=== PATIENT | male | born 1940 | race Caucasian/White ===

== ENCOUNTER 2016-09-20 15:18 | Observation (INO) | payer MEDICARE ==
[~2016-09-20] VITALS: Ht 172.7 cm; Wt 94.8 kg
[~2016-09-20 15:18] MED LIST: AQUAPHOR OINTM396 GM TP; AQUAPHOR1 OI1 TP; ASPI325T6 PO; ASPIRIN 81M81 MG/TA2 PO; CALCIUM 600/VIT1 CAP PO; CALCIUM600 M1 PO; CLOBETASOL0.05% TP; COZAAR 50MG50 MG/TAB PO; FENTANYL 25 MCG TD; FISH OIL 1000MG1 CAP PO; FISH OIL500 MG PO; FLUOCINONIDE 0.60 GM TP; GLUCOPHAGE500 MG/TAB PO; HALOBETASOL PRO0.05% TP; HYGROTON 2525 MG/TAB PO; HYGROTON25 MG PO; IMODIUM 2MG CAPS2 MG PO; JANUMET 1000 MG1 TA1 PO; KENALOG0.1% TP; LIPITOR20 MG PO; LOPRESSOR 225 MG/TAB PO; MAG-OX 400400 MG/TAB PO; MAGOX 400241.3 MG PO; MULTIPLE VITAMI1 CAP PO; NEXIUM 40MG40 MG PO; NIACIN 100100 MG/TAB PO; NIACIN100 MG PO; NITROSTAT0.4 MG/TAB SL; NORCO 325 MG-51 TAB PO; PEPCID 20MG TAB20 MG PO; ROXANOL 20MG20 MG/ML PO; SYNTHROID0.05 MG/TA PO; TEMOVATE0.052 TOP; TOPROL XL 50MG50 MG PO; ULTRAVATE CREAM15 GM TP; VITAMIN D 400400 IU PO; [UNRECOGNIZED DRUG - OTHER] TP
[2016-09-20 16:22] VITALS: BP 107/587; PULSE 77
[2016-09-20 16:34] LABS: MEAN CELL VOLUME 102 fl (80.0-100.0); MEAN CORPUSCULAR HGB CONC 33 g/dl (33.0-37.0); MEAN PLATELET VOLUME 10.3 fl (7.4-10.4); RED BLOOD COUNT 2.19 M/mm3 (4.20-5.60); REDCELL DISTRIBUTION WIDTH-CV 18.4 % (11.5-14.5)
[2016-09-20 16:41] LABS: ADJUSTED CALCIUM 9.6 mg/dL (8.4-10.2); ALANINE AMINOTRANSFERASE 38 U/L (21-72); ALBUMIN 3.7 gm/dL (3.5-5.0); ALKALINE PHOSPHATASE 91 U/L (50-136); ANION GAP 13 mmol/L (7-16); BILIRUBIN,TOTAL 0.7 mg/dL (0.0-1.0); BLOOD UREA NITROGEN 25 mg/dL (9-20); CALCIUM 9.4 mg/dL (8.4-10.2); CARBON DIOXIDE 29 mmol/L (22-30); CHLORIDE 96 mmol/L (98-107); CREATININE, serum 0.97 mg/dL (0.66-1.25); GLUCOSE 148 mg/dL (74-106); POTASSIUM 3.8 mmol/L (3.4-5.0); SODIUM 138 mmol/L (137-145); TOTAL PROTEIN 6.8 gm/dL (6.4-8.2)
[2016-09-20 16:42] LABS: HEMATOCRIT 22.3 % (42.0-52.0); HEMOGLOBIN 7.3 g/dl (13.5-18.0); MEAN CORPUSCULAR HEMOGLOBIN 33 pg (27.0-31.0); PLATELET COUNT 57 K/mm3 (130-400); WHITE BLOOD COUNT 1.8 K/mm3 (4.8-10.8)
[2016-09-20 16:52] LABS: TROPONIN-I < 0.012 ng/mL (0.000-0.034)
[2016-09-20 17:04] LABS: BAND 36 % (0-10); BASOPHIL 1 % (0-2); METAMYELOCYTE 2 % (0-0); MYELOCYTE 4 % (0-0); NEUTROPHILS 18 % (42.0-75.2); TOTAL CELLS COUNTED 100
[2016-09-20 17:05] LABS: ANISOCYTOSIS 2+; PLATELET ESTIMATE DECREASED (NORMAL)
[2016-09-20 17:06] LABS: HYPOCHROMIA 2+
[2016-09-20 17:07] LABS: ADD PATHOLOGY DIFF REVIEW YES
[2016-09-20] MEDS ORDERED: FENTANYL 100 MCG SL (17:46)
[2016-09-20] MEDS ORDERED: FENTANYL 100MCG TD (18:27)
[2016-09-20 18:59] VITALS: BP 115/56; PULSE 74; TEMP 98.3
[2016-09-20 22:32] LABS: PH 6 (5-8); SQUAMOUS EPITHELIAL 0-2 /hpf; URINE APPEARANCE Clear; URINE BACTERIA None Seen /hpf; URINE BILIRUBIN Negative (NEGATIVE); URINE BLOOD Negative (NEGATIVE); URINE COLOR Yellow; URINE GLUCOSE Negative (NEGATIVE); URINE KETONE Negative (NEGATIVE); URINE RBC 0-2 /hpf; URINE UROBILINOGEN Negative (NEGATIVE); URINE WBC 0-2 /hpf
[2016-09-20 23:09] VITALS: BP 93/50; PULSE 77; TEMP 98.2
[2016-09-20 23:33] VITALS: BP 97/50; PULSE 74; TEMP 98.2
[2016-09-21] VITALS (9 sets, daily range): BP systolic 88–118; BP diastolic 49–68; PULSE 62–86; TEMP 98.1–98.4
[2016-09-21 17:41] LABS: HEMATOCRIT 23.8 % (42.0-52.0); MEAN CELL VOLUME 96 fl (80.0-100.0); MEAN CORPUSCULAR HEMOGLOBIN 32 pg (27.0-31.0); MEAN CORPUSCULAR HGB CONC 34 g/dl (33.0-37.0); RED BLOOD COUNT 2.47 M/mm3 (4.20-5.60); REDCELL DISTRIBUTION WIDTH-CV 18.7 % (11.5-14.5)
[2016-09-21 17:43] LABS: ADD PATHOLOGY DIFF REVIEW NO; PLATELET COUNT 41 K/mm3 (130-400)
[2016-09-21 17:52] LABS: ANISOCYTOSIS 2+; BAND 14 % (0-10); EOSINOPHIL 2 % (0-4); NEUTROPHILS 12 % (42.0-75.2); PLATELET ESTIMATE DECREASED (NORMAL); POLYCHROMASIA 1+
[2016-09-21 17:53] LABS: TOTAL CELLS COUNTED 50
[2016-09-21 17:58] LABS: CALCIUM 8.9 mg/dL (8.4-10.2); CREATININE, serum 0.86 mg/dL (0.66-1.25); POTASSIUM 3.6 mmol/L (3.4-5.0)
[2016-09-21] MEDS ORDERED: AMOXICILLIN 8751 TAB PO (18:12)
[2016-09-21] MEDS ORDERED: COLACE 100100 MG/CAP PO (18:13)
[2016-09-23 08:37] LABS: PATHOLOGY DIFF REVIEW OK
== END 2016-09-21 18:50 | disposition home or self-care (01) ==
LOC: COL.ER 15:18 → MEDICAL 17:27
PROVIDERS: Emergency Medicine; Nurse Practitioner Family
DX: D61.810 Antineoplastic chemotherapy induced pancytopenia (principal); D69.6 Thrombocytopenia, unspecified; J32.9 Chronic sinusitis, unspecified; D72.819 Decreased white blood cell count, unspecified; E11.9 Type 2 diabetes mellitus without complications; I10 Essential (primary) hypertension; C34.90 Malignant neoplasm of unspecified part of unspecified bronchus or lung; C79.51 Secondary malignant neoplasm of bone; D64.81 Anemia due to antineoplastic chemotherapy; Z85.46 Personal history of malignant neoplasm of prostate; G35 Multiple sclerosis; R53.1 Weakness; E66.9 Obesity, unspecified; E78.5 Hyperlipidemia, unspecified; E03.9 Hypothyroidism, unspecified
CPT/HCPCS: G0378; J7030; P9040

== ENCOUNTER 2016-10-14 09:47 | Outpatient (RCR) | payer MEDICARE ==
[2016-10-14] VITALS (9 sets, daily range): BP systolic 86–107; BP diastolic 49–57; PULSE 67–77; TEMP 97.5–98.8
[~2016-10-14] VITALS: Ht 172.7 cm; Wt 100.1 kg
[~2016-10-14 09:47] MED LIST changes: +AMOXICILLIN 8751 TAB PO; +COLACE 100100 MG/CAP PO; +FENTANYL 100 MCG SL; +FENTANYL 100MCG TD
[2016-10-14 10:59] LABS: HEMATOCRIT 22.8 % (42.0-52.0); HEMOGLOBIN 7.5 g/dl (13.5-18.0)
[2016-10-14] MEDS ORDERED: ZOFRAN8 MG PO (11:14)
[2016-10-14] MEDS ORDERED: MS CONTIN100 MG PO (11:14)
== END 2016-10-14 16:14 | disposition home or self-care (01) ==
LOC: EUO 09:47
PROVIDERS: Internal Medicine
DX: C7A.8 Other malignant neuroendocrine tumors (principal)
CPT/HCPCS: J1644; J7050; P9016

== ENCOUNTER 2017-01-17 18:09 | Emergency (ER) | payer MEDICARE ==
[~2017-01-17] VITALS: Ht 172.7 cm; Wt 99.1 kg
[~2017-01-17 18:09] MED LIST changes: +MS CONTIN100 MG PO; +ZOFRAN8 MG PO
[2017-01-17 18:12] VITALS: TEMP 97.8
[2017-01-17 19:43] LABS: BASO % 0.6 % (0.0-2.0); EOS # 0.1 (0.0-0.7); EOS % 1.9 % (0-4.0); GRAN # 3.7 (1.4-6.5); GRAN % 70.1 % (42.2-75.2); LYMPH # 0.7 (1.2-3.4); LYMPH % 13.2 % (20.0-51.0); MEAN CELL VOLUME 102 fl (80.0-100.0); MEAN CORPUSCULAR HGB CONC 33 g/dl (33.0-37.0); MONO # 0.7 (0.1-0.6); PLATELET COUNT 170 K/mm3 (130-400); RED BLOOD COUNT 2.97 M/mm3 (4.20-5.60); REDCELL DISTRIBUTION WIDTH-CV 13.2 % (11.5-14.5); WHITE BLOOD COUNT 5.2 K/mm3 (4.8-10.8)
[2017-01-17 19:44] LABS: HEMATOCRIT 30.2 % (42.0-52.0); HEMOGLOBIN 9.9 g/dl (13.5-18.0); MEAN CORPUSCULAR HEMOGLOBIN 33 pg (27.0-31.0)
[2017-01-17 19:55] LABS: ADJUSTED CALCIUM 9.2 mg/dL (8.4-10.2); ALANINE AMINOTRANSFERASE 23 U/L (21-72); ALBUMIN 3.7 gm/dL (3.5-5.0); ALKALINE PHOSPHATASE 64 U/L (50-136); ANION GAP 9 mmol/L (7-16); BILIRUBIN,TOTAL 0.7 mg/dL (0.0-1.0); BLOOD UREA NITROGEN 20 mg/dL (9-20); CARBON DIOXIDE 29 mmol/L (22-30); CHLORIDE 98 mmol/L (98-107); GLUCOSE 85 mg/dL (74-106); LIPASE 100 U/L (23-300); POTASSIUM 3.8 mmol/L (3.4-5.0); SODIUM 137 mmol/L (137-145)
[2017-01-17 19:56] LABS: C-REACTIVE PROTEIN < 0.5 mg/dL (0.0-0.9)
[2017-01-17 21:43] VITALS: BP 100/57; PULSE 68
== END 2017-01-17 21:43 | disposition home or self-care (01) ==
LOC: COL.ER 18:09
PROVIDERS: Emergency Medicine
DX: R10.11 Right upper quadrant pain (principal); E11.9 Type 2 diabetes mellitus without complications; G35 Multiple sclerosis; Z85.46 Personal history of malignant neoplasm of prostate; I10 Essential (primary) hypertension; Z92.3 Personal history of irradiation; Z79.84 Long term (current) use of oral hypoglycemic drugs
CPT/HCPCS: J7030; Q9967

== ENCOUNTER 2017-03-10 13:30 | Outpatient (RCR) | payer MEDICARE ==
[2017-03-10] VITALS (8 sets, daily range): BP systolic 82–109; BP diastolic 45–73; PULSE 55–84; TEMP 98.1–98.6
[~2017-03-10] VITALS: Ht 172.7 cm; Wt 96.4 kg
[2017-03-15] MEDS ORDERED: K-DUR 10 MEQ T10 MEQ PO (01:21)
[2017-03-27] MEDS ORDERED: GLUCOSAMIN 500 PO (14:19)
[2017-03-27] MEDS ORDERED: LEVAQUIN 5500 MG/TA1 PO (14:20)
[2017-03-27] MEDS ORDERED: MS CONTIN100 MG PO (14:21)
[2017-03-27] MEDS ORDERED: KLOR-CON 1010 MEQ PO (14:22)
[2017-03-27] MEDS ORDERED: COENZYME Q-10100 M1 PO (14:23)
[2017-03-27 17:18] VITALS: BP 111/52; PULSE 79; TEMP 98
[2017-03-27 17:33] VITALS: BP 93/44; PULSE 77; TEMP 98.3
[2017-03-27 17:47] VITALS: BP 104/50; PULSE 80; TEMP 98
[2017-03-28 09:25] VITALS: BP 101/55; PULSE 83; TEMP 97.8
[2017-03-28 09:40] VITALS: BP 92/53; PULSE 81; TEMP 98.6
[2017-03-28 10:10] VITALS: BP 89/53; PULSE 77; TEMP 97.4
[2017-03-28 11:00] VITALS: BP 93/55; PULSE 75; TEMP 98.6
== END 2017-03-28 11:29 | disposition home or self-care (01) ==
LOC: EUO 13:30
DX: C34.90 Malignant neoplasm of unspecified part of unspecified bronchus or lung (principal); Z79.899 Other long term (current) drug therapy
CPT/HCPCS: J1644; J7050; P9037; P9040

== ENCOUNTER 2017-03-14 23:53 | Emergency (ER) | payer MEDICARE ==
[~2017-03-14] VITALS: Ht 172.7 cm; Wt 96.4 kg
[2017-03-15 00:18] LABS: MEAN CELL VOLUME 96 fl (80.0-100.0); MEAN CORPUSCULAR HGB CONC 34 g/dl (33.0-37.0); MEAN PLATELET VOLUME 9.3 fl (7.4-10.4); PLATELET COUNT 95 K/mm3 (130-400); RED BLOOD COUNT 2.88 M/mm3 (4.20-5.60); WHITE BLOOD COUNT 4.8 K/mm3 (4.8-10.8)
[2017-03-15 00:20] LABS: HEMATOCRIT 27.5 % (42.0-52.0); HEMOGLOBIN 9.3 g/dl (13.5-18.0); MEAN CORPUSCULAR HEMOGLOBIN 32 pg (27.0-31.0)
[2017-03-15 00:21] LABS: ADD PATHOLOGY DIFF REVIEW NO
[2017-03-15 00:29] LABS: ADJUSTED CALCIUM 9.2 mg/dL (8.4-10.2); ALBUMIN 3.7 gm/dL (3.5-5.0); BILIRUBIN,TOTAL 0.6 mg/dL (0.0-1.0); CREATININE, serum 1.5 mg/dL (0.66-1.25); TOTAL PROTEIN 6.9 gm/dL (6.4-8.2)
[2017-03-15 00:30] LABS: BAND 25 % (0-10); EOSINOPHIL 2 % (0-4); LYMPHOCYTE 13 % (20.0-51.0); METAMYELOCYTE 3 % (0-0); NEUTROPHILS 40 % (42.0-75.2); PLATELET ESTIMATE NORMAL (NORMAL); TOTAL CELLS COUNTED 100
[2017-03-15 00:31] LABS: INR 1.1 (0.8-3.0); PROTHROMBIN TIME 12.1 SECONDS (9.7-12.8)
[2017-03-15] MEDS ORDERED: K-DUR 10 MEQ T10 MEQ PO (01:21)
[2017-03-15 01:23] VITALS: BP 119/62; PULSE 77; TEMP 99.3
== END 2017-03-15 02:10 | disposition home or self-care (01) ==
LOC: COL.ER 23:53
PROVIDERS: Emergency Medicine
DX: R09.1 Pleurisy (principal); C79.51 Secondary malignant neoplasm of bone; I87.2 Venous insufficiency (chronic) (peripheral); R60.0 Localized edema; C78.02 Secondary malignant neoplasm of left lung; C78.01 Secondary malignant neoplasm of right lung
CPT/HCPCS: J7030; Q9967

== ENCOUNTER 2017-03-27 11:13 | Emergency (ER) | payer MEDICARE ==
[~2017-03-27] VITALS: Ht 172.7 cm; Wt 96.4 kg
[~2017-03-27 11:13] MED LIST changes: +K-DUR 10 MEQ T10 MEQ PO
[2017-03-27 11:16] VITALS: TEMP 97.9
[2017-03-27 12:26] LABS: PARTIAL THROMBOPLASTIN TIME 24.1 SECONDS (26.0-37.0); PROTHROMBIN TIME 11.4 SECONDS (9.7-12.8)
[2017-03-27 12:43] LABS: ALBUMIN 3.4 gm/dL (3.5-5.0); BILIRUBIN,TOTAL 1.2 mg/dL (0.0-1.0); CALCIUM 8.5 mg/dL (8.4-10.2); CREATININE, serum 1.38 mg/dL (0.66-1.25); POTASSIUM 3.5 mmol/L (3.4-5.0); TOTAL PROTEIN 6.3 gm/dL (6.4-8.2)
[2017-03-27 12:53] LABS: PH 5 (5-8); SQUAMOUS EPITHELIAL 0-2 /hpf; URINE APPEARANCE Hazy; URINE BACTERIA Rare /hpf; URINE BILIRUBIN Negative (NEGATIVE); URINE BLOOD Negative (NEGATIVE); URINE COLOR Yellow; URINE GLUCOSE Negative (NEGATIVE); URINE KETONE Negative (NEGATIVE); URINE RBC 0-2 /hpf; URINE UROBILINOGEN Negative (NEGATIVE)
[2017-03-27 13:23] LABS: MEAN CELL VOLUME 96 fl (80.0-100.0); MEAN CORPUSCULAR HGB CONC 34 g/dl (33.0-37.0); MEAN PLATELET VOLUME 9.9 fl (7.4-10.4); RED BLOOD COUNT 2.36 M/mm3 (4.20-5.60); REDCELL DISTRIBUTION WIDTH-CV 13.2 % (11.5-14.5)
[2017-03-27 13:28] LABS: HEMATOCRIT 22.6 % (42.0-52.0); HEMOGLOBIN 7.6 g/dl (13.5-18.0); MEAN CORPUSCULAR HEMOGLOBIN 32 pg (27.0-31.0); PLATELET COUNT 34 K/mm3 (130-400); WHITE BLOOD COUNT 1.1 K/mm3 (4.8-10.8)
[2017-03-27] MEDS ORDERED: GLUCOSAMIN 500 PO (14:19)
[2017-03-27] MEDS ORDERED: LEVAQUIN 5500 MG/TA1 PO (14:20)
[2017-03-27] MEDS ORDERED: MS CONTIN100 MG PO (14:21)
[2017-03-27] MEDS ORDERED: KLOR-CON 1010 MEQ PO (14:22)
[2017-03-27] MEDS ORDERED: COENZYME Q-10100 M1 PO (14:23)
[2017-03-27 14:37] LABS: BAND 14 % (0-10); EOSINOPHIL 2 % (0-4); METAMYELOCYTE 4 % (0-0); NEUTROPHILS 44 % (42.0-75.2); PLATELET ESTIMATE DECREASED (NORMAL); TOTAL CELLS COUNTED 100
[2017-03-27 14:39] LABS: HYPOCHROMIA 2+
[2017-03-27 14:42] LABS: ADD PATHOLOGY DIFF REVIEW YES
[2017-03-27 14:58] VITALS: BP 113/71; PULSE 80
[2017-03-30 09:08] LABS: PATHOLOGY DIFF REVIEW OK
== END 2017-03-27 14:57 | disposition home or self-care (01) ==
LOC: COL.ER 11:13
PROVIDERS: Emergency Medicine
DX: D64.9 Anemia, unspecified (principal); R07.9 Chest pain, unspecified; R42 Dizziness and giddiness; R06.02 Shortness of breath; R53.1 Weakness; Z85.118 Personal history of other malignant neoplasm of bronchus and lung; E11.9 Type 2 diabetes mellitus without complications; I10 Essential (primary) hypertension; Z85.46 Personal history of malignant neoplasm of prostate; C79.51 Secondary malignant neoplasm of bone
CPT/HCPCS: J7030

== ENCOUNTER 2017-03-31 13:03 | Outpatient (RCR) | payer MEDICARE ==
[~2017-03-31] VITALS: Ht 172.7 cm; Wt 96.3 kg
[~2017-03-31 13:03] MED LIST changes: +COENZYME Q-10100 M1 PO; +GLUCOSAMIN 500 PO; +KLOR-CON 1010 MEQ PO; +LEVAQUIN 5500 MG/TA1 PO
[2017-03-31 13:52] VITALS: BP 94/58; PULSE 80; TEMP 98.7
[2017-03-31 14:11] VITALS: BP 99/59; PULSE 82; TEMP 98.1
[2017-03-31 14:26] VITALS: BP 102/46; PULSE 68; TEMP 98.4
[2017-03-31 14:45] VITALS: BP 97/50; PULSE 70; TEMP 98.5
[2017-04-12] MEDS ORDERED: FENTANYL 100MCG TD (13:45)
[2017-04-14] MEDS ORDERED: COLACE 100100 MG/CAP PO (20:23)
[2017-04-15] MEDS ORDERED: AMOXICILLIN 8751 TAB PO (12:43)
[2017-04-23] MEDS ORDERED: HYCAMTIN IV (18:58)
[2017-05-09] MEDS ORDERED: MIRALAX 255 GM255 GM PO (16:17)
[2017-05-12] MEDS ORDERED: PROTONIX 40MG T40 MG PO (17:46)
== END 2017-06-29 ==
LOC: EUO
DX: C7A.00 Malignant carcinoid tumor of unspecified site (principal)
CPT/HCPCS: J1644; J7050; P9035

== ENCOUNTER → 2017-04-10 | Outpatient (CLI) | payer MEDICARE ==
[~2017-04-10] MED LIST changes: +HYCAMTIN IV; +MIRALAX 255 GM255 GM PO; +PROTONIX 40MG T40 MG PO
== END ==
LOC: COL.RAD 12:25
DX: C34.90 Malignant neoplasm of unspecified part of unspecified bronchus or lung (principal); C7A.00 Malignant carcinoid tumor of unspecified site; J34.89 Other specified disorders of nose and nasal sinuses; G31.9 Degenerative disease of nervous system, unspecified
CPT/HCPCS: A9585; J1644

== ENCOUNTER 2017-04-12 12:15 | Emergency (ER) | payer MEDICARE ==
[~2017-04-12] VITALS: Ht 172.7 cm; Wt 96.4 kg
[~2017-04-12 12:15] MED LIST changes: -HYCAMTIN IV; -MIRALAX 255 GM255 GM PO; -PROTONIX 40MG T40 MG PO
[2017-04-12 12:20] VITALS: TEMP 98
[2017-04-12 13:14] LABS: MEAN CELL VOLUME 96 fl (80.0-100.0); MEAN CORPUSCULAR HGB CONC 33 g/dl (33.0-37.0); MEAN PLATELET VOLUME 9.7 fl (7.4-10.4); PLATELET COUNT 360 K/mm3 (130-400); RED BLOOD COUNT 2.66 M/mm3 (4.20-5.60); REDCELL DISTRIBUTION WIDTH-CV 14.6 % (11.5-14.5)
[2017-04-12 13:15] LABS: HEMATOCRIT 25.5 % (42.0-52.0); HEMOGLOBIN 8.4 g/dl (13.5-18.0); MEAN CORPUSCULAR HEMOGLOBIN 32 pg (27.0-31.0)
[2017-04-12 13:16] LABS: ADD PATHOLOGY DIFF REVIEW NO
[2017-04-12 13:22] LABS: ADJUSTED CALCIUM 9.3 mg/dL (8.4-10.2); ALBUMIN 3.5 gm/dL (3.5-5.0); BILIRUBIN,TOTAL 1.4 mg/dL (0.0-1.0); CALCIUM 8.9 mg/dL (8.4-10.2); CREATININE, serum 1.4 mg/dL (0.66-1.25); POTASSIUM 4.4 mmol/L (3.4-5.0); TOTAL PROTEIN 6.2 gm/dL (6.4-8.2)
[2017-04-12 13:42] LABS: PH 5 (5-8); SQUAMOUS EPITHELIAL 0-2 /hpf; URINE APPEARANCE Clear; URINE BACTERIA None Seen /hpf; URINE BILIRUBIN Negative (NEGATIVE); URINE BLOOD 1+ (NEGATIVE); URINE COLOR Yellow; URINE GLUCOSE Negative (NEGATIVE); URINE KETONE Negative (NEGATIVE); URINE RBC 0-2 /hpf; URINE UROBILINOGEN Negative (NEGATIVE); URINE WBC 0-2 /hpf
[2017-04-12] MEDS ORDERED: FENTANYL 100MCG TD (13:45)
[2017-04-12 14:40] LABS: BAND 7 % (0-10); NEUTROPHILS 86 % (42.0-75.2); OVALOCYTES 2+; PLATELET ESTIMATE INCREASED (NORMAL); TOTAL CELLS COUNTED 100
[2017-04-12 15:20] VITALS: BP 117/73; PULSE 63
== END 2017-04-12 15:44 | disposition home or self-care (01) ==
LOC: COL.ER 12:15
PROVIDERS: Emergency Medicine
DX: D64.9 Anemia, unspecified (principal); R53.1 Weakness; I10 Essential (primary) hypertension; E11.9 Type 2 diabetes mellitus without complications; Z85.46 Personal history of malignant neoplasm of prostate; G35 Multiple sclerosis; C78.02 Secondary malignant neoplasm of left lung; C78.01 Secondary malignant neoplasm of right lung
CPT/HCPCS: J7040

== ENCOUNTER 2017-04-14 16:18 | Observation (INO) | payer MEDICARE ==
[~2017-04-14] VITALS: Ht 172.7 cm; Wt 92.3 kg
[2017-04-14 17:13] LABS: MEAN CELL VOLUME 93 fl (80.0-100.0); MEAN CORPUSCULAR HGB CONC 33 g/dl (33.0-37.0); MEAN PLATELET VOLUME 9.8 fl (7.4-10.4); REDCELL DISTRIBUTION WIDTH-CV 14.5 % (11.5-14.5)
[2017-04-14 17:21] LABS: ADJUSTED CALCIUM 9.6 mg/dL (8.4-10.2); ALANINE AMINOTRANSFERASE 20 U/L (21-72); ALBUMIN 3.7 gm/dL (3.5-5.0); ALKALINE PHOSPHATASE 55 U/L (50-136); ANION GAP 13 mmol/L (7-16); BILIRUBIN,TOTAL 1.6 mg/dL (0.0-1.0); BLOOD UREA NITROGEN 36 mg/dL (9-20); CALCIUM 9.4 mg/dL (8.4-10.2); CARBON DIOXIDE 23 mmol/L (22-30); CHLORIDE 100 mmol/L (98-107); CREATININE, serum 1.31 mg/dL (0.66-1.25); GLUCOSE 103 mg/dL (74-106); HEMATOCRIT 25.2 % (42.0-52.0); HEMOGLOBIN 8.4 g/dl (13.5-18.0); MEAN CORPUSCULAR HEMOGLOBIN 31 pg (27.0-31.0); POTASSIUM 3.6 mmol/L (3.4-5.0); SODIUM 136 mmol/L (137-145); TOTAL PROTEIN 6.5 gm/dL (6.4-8.2); WHITE BLOOD COUNT 0.9 K/mm3 (4.8-10.8)
[2017-04-14 17:23] LABS: C-REACTIVE PROTEIN < 0.5 mg/dL (0.0-0.9)
[2017-04-14 17:39] LABS: PH 5 (5-8); SQUAMOUS EPITHELIAL 0-2 /hpf; URINE APPEARANCE Clear; URINE BACTERIA None Seen /hpf; URINE BILIRUBIN Negative (NEGATIVE); URINE BLOOD 1+ (NEGATIVE); URINE COLOR Yellow; URINE GLUCOSE Negative (NEGATIVE); URINE KETONE Negative (NEGATIVE); URINE RBC 0-2 /hpf; URINE UROBILINOGEN Negative (NEGATIVE)
[2017-04-14 17:47] LABS: ADD PATHOLOGY DIFF REVIEW NO; PLATELET COUNT 213 K/mm3 (130-400)
[2017-04-14 17:52] LABS: BAND 18 % (0-10); NEUTROPHILS 44 % (42.0-75.2); PLATELET ESTIMATE NORMAL (NORMAL); TOXIC GRANULATION PRESENT
[2017-04-14 17:53] LABS: DOHLE BODIES PRESENT
[2017-04-14 17:54] LABS: ANISOCYTOSIS 1+; OVALOCYTES 1+; POIKILOCYTOSIS 2+
[2017-04-14 17:56] LABS: HYPOCHROMIA 1+; TOTAL CELLS COUNTED 100
[2017-04-14] MEDS ORDERED: COLACE 100100 MG/CAP PO (20:23)
[2017-04-14 21:36] VITALS: BP 105/57; PULSE 71; TEMP 98
[2017-04-14 23:59] VITALS: BP 102/58; PULSE 87; TEMP 97.8
[2017-04-15 04:17] VITALS: BP 89/47; PULSE 75; TEMP 97.2
[2017-04-15 05:30] VITALS: BP 100/57
[2017-04-15 06:37] LABS: MEAN CELL VOLUME 95 fl (80.0-100.0); MEAN CORPUSCULAR HGB CONC 33 g/dl (33.0-37.0); MEAN PLATELET VOLUME 10.3 fl (7.4-10.4); PLATELET COUNT 156 K/mm3 (130-400); RED BLOOD COUNT 2.45 M/mm3 (4.20-5.60); REDCELL DISTRIBUTION WIDTH-CV 14.6 % (11.5-14.5)
[2017-04-15 06:42] LABS: HEMATOCRIT 23.2 % (42.0-52.0); HEMOGLOBIN 7.6 g/dl (13.5-18.0); MEAN CORPUSCULAR HEMOGLOBIN 31 pg (27.0-31.0); WHITE BLOOD COUNT 1.2 K/mm3 (4.8-10.8)
[2017-04-15 06:43] LABS: ADD PATHOLOGY DIFF REVIEW NO
[2017-04-15 06:50] LABS: CALCIUM 8.7 mg/dL (8.4-10.2); CREATININE, serum 1.18 mg/dL (0.66-1.25); POTASSIUM 3.3 mmol/L (3.4-5.0)
[2017-04-15 07:42] LABS: BAND 42 % (0-10); NEUTROPHILS 10 % (42.0-75.2); TOTAL CELLS COUNTED 100
[2017-04-15 07:46] LABS: PLATELET ESTIMATE NORMAL (NORMAL)
[2017-04-15 07:47] LABS: DOHLE BODIES PRESENT; TOXIC GRANULATION PRESENT
[2017-04-15 07:48] LABS: TEAR DROP CELLS 1+
[2017-04-15 08:30] VITALS: BP 95/50; PULSE 70; TEMP 99
[2017-04-15 11:15] VITALS: BP 103/59; PULSE 76; TEMP 97.9
[2017-04-15] MEDS ORDERED: AMOXICILLIN 8751 TAB PO (12:43)
== END 2017-04-15 15:40 | disposition home or self-care (01) ==
LOC: COL.ER 16:18 → MEDICAL 18:53
PROVIDERS: Emergency Medicine; Nurse Practitioner Family
DX: I95.9 Hypotension, unspecified (principal); R74.0 Nonspecific elevation of levels of transaminase and lactic acid dehydrogenase [LDH]; R63.4 Abnormal weight loss; E43 Unspecified severe protein-calorie malnutrition; J32.9 Chronic sinusitis, unspecified; D72.819 Decreased white blood cell count, unspecified; D72.825 Bandemia; D64.9 Anemia, unspecified; N18.9 Chronic kidney disease, unspecified; E11.22 Type 2 diabetes mellitus with diabetic chronic kidney disease; E03.9 Hypothyroidism, unspecified; E78.5 Hyperlipidemia, unspecified; G35 Multiple sclerosis; E66.9 Obesity, unspecified; Z85.46 Personal history of malignant neoplasm of prostate; C34.90 Malignant neoplasm of unspecified part of unspecified bronchus or lung; C79.51 Secondary malignant neoplasm of bone; Z92.3 Personal history of irradiation; Z79.899 Other long term (current) drug therapy; E80.7 Disorder of bilirubin metabolism, unspecified; R53.1 Weakness
CPT/HCPCS: 99223-AI; G0378; J0692; J2270; J7030

== ENCOUNTER 2017-04-23 18:35 | Emergency (ER) | payer MEDICARE ==
[~2017-04-23] VITALS: Ht 172.7 cm; Wt 96.4 kg
[2017-04-23] MEDS ORDERED: HYCAMTIN IV (18:58)
[2017-04-23 19:13] LABS: MEAN CELL VOLUME 93 fl (80.0-100.0); MEAN CORPUSCULAR HGB CONC 34 g/dl (33.0-37.0); MEAN PLATELET VOLUME 10.7 fl (7.4-10.4); PLATELET COUNT 114 K/mm3 (130-400); RED BLOOD COUNT 2.48 M/mm3 (4.20-5.60); REDCELL DISTRIBUTION WIDTH-CV 15.2 % (11.5-14.5); WHITE BLOOD COUNT 13.3 K/mm3 (4.8-10.8)
[2017-04-23 19:18] LABS: HEMATOCRIT 23.1 % (42.0-52.0); HEMOGLOBIN 7.9 g/dl (13.5-18.0); MEAN CORPUSCULAR HEMOGLOBIN 32 pg (27.0-31.0)
[2017-04-23 19:19] LABS: ADD PATHOLOGY DIFF REVIEW NO
[2017-04-23 19:35] LABS: ADJUSTED CALCIUM 9.1 mg/dL (8.4-10.2); ALBUMIN 3.7 gm/dL (3.5-5.0); BILIRUBIN,TOTAL 0.8 mg/dL (0.0-1.0); CALCIUM 8.9 mg/dL (8.4-10.2); CREATININE, serum 1.3 mg/dL (0.66-1.25); TOTAL PROTEIN 6.4 gm/dL (6.4-8.2)
[2017-04-23 19:37] LABS: POTASSIUM 2.7 mmol/L (3.4-5.0)
[2017-04-23 20:01] LABS: ANISOCYTOSIS 1+; BAND 21 % (0-10); METAMYELOCYTE 2 % (0-0); NEUTROPHILS 55 % (42.0-75.2); PLATELET ESTIMATE NORMAL (NORMAL); POLYCHROMASIA 1+; TOTAL CELLS COUNTED 100
[2017-04-23 20:02] LABS: POIKILOCYTOSIS 1+
[2017-04-23 20:40] LABS: PH 7 (5-8); SQUAMOUS EPITHELIAL 0-2 /hpf; URINE APPEARANCE Hazy; URINE BACTERIA None Seen /hpf; URINE BILIRUBIN Negative (NEGATIVE); URINE BLOOD Negative (NEGATIVE); URINE COLOR Yellow; URINE GLUCOSE 1+ (NEGATIVE); URINE KETONE Trace (NEGATIVE); URINE RBC 0-2 /hpf; URINE UROBILINOGEN Negative (NEGATIVE)
[2017-04-23 22:28] VITALS: BP 115/68; PULSE 81; TEMP 98.8
== END 2017-04-23 22:55 | disposition home or self-care (01) ==
LOC: COL.ER 18:35
PROVIDERS: Emergency Medicine
DX: E87.6 Hypokalemia (principal); D64.9 Anemia, unspecified; E11.9 Type 2 diabetes mellitus without complications; I12.9 Hypertensive chronic kidney disease with stage 1 through stage 4 chronic kidney disease, or unspecified chronic kidney disease; E78.5 Hyperlipidemia, unspecified; N18.9 Chronic kidney disease, unspecified; Z79.82 Long term (current) use of aspirin; C34.90 Malignant neoplasm of unspecified part of unspecified bronchus or lung; Z85.46 Personal history of malignant neoplasm of prostate; Z92.21 Personal history of antineoplastic chemotherapy; Z98.890 Other specified postprocedural states
CPT/HCPCS: J3480; J7030

== ENCOUNTER 2017-05-09 14:43 | Emergency (ER) | payer MEDICARE ==
[~2017-05-09] VITALS: Ht 172.7 cm; Wt 90.9 kg
[~2017-05-09 14:43] MED LIST changes: +HYCAMTIN IV
[2017-05-09 14:44] VITALS: TEMP 97.9
[2017-05-09] MEDS ORDERED: MIRALAX 255 GM255 GM PO (16:17)
[2017-05-09 16:43] VITALS: BP 113/61; PULSE 78
== END 2017-05-09 16:59 | disposition home or self-care (01) ==
LOC: COL.ER 14:43
DX: K59.00 Constipation, unspecified (principal); E11.9 Type 2 diabetes mellitus without complications; I10 Essential (primary) hypertension; Z85.46 Personal history of malignant neoplasm of prostate; Z85.118 Personal history of other malignant neoplasm of bronchus and lung; Z85.79 Personal history of other malignant neoplasms of lymphoid, hematopoietic and related tissues; Z90.79 Acquired absence of other genital organ(s); Z79.82 Long term (current) use of aspirin

== ENCOUNTER 2017-05-12 01:31 | Observation (INO) | payer MEDICARE ==
[2017-05-12] VITALS (13 sets, daily range): BP systolic 95–140; BP diastolic 40–80; PULSE 75–89; TEMP 97.6–99
[~2017-05-12] VITALS: Ht 172.7 cm; Wt 91.8 kg
[~2017-05-12 01:31] MED LIST changes: +MIRALAX 255 GM255 GM PO
[2017-05-12 02:16] LABS: HEMATOCRIT 22.8 % (42.0-52.0); HEMOGLOBIN 7.2 g/dl (13.5-18.0); MEAN CELL VOLUME 104 fl (80.0-100.0); MEAN CORPUSCULAR HEMOGLOBIN 33 pg (27.0-31.0); MEAN CORPUSCULAR HGB CONC 32 g/dl (33.0-37.0); MEAN PLATELET VOLUME 8.9 fl (7.4-10.4); PLATELET COUNT 130 K/mm3 (130-400); REDCELL DISTRIBUTION WIDTH-CV 20.8 % (11.5-14.5); WHITE BLOOD COUNT 11.8 K/mm3 (4.8-10.8)
[2017-05-12 02:17] LABS: ADD PATHOLOGY DIFF REVIEW NO
[2017-05-12 02:26] LABS: ADJUSTED CALCIUM 9.8 mg/dL (8.4-10.2); ALANINE AMINOTRANSFERASE 18 U/L (21-72); ALBUMIN 3.3 gm/dL (3.5-5.0); ALKALINE PHOSPHATASE 56 U/L (50-136); ANION GAP 11 mmol/L (7-16); BILIRUBIN,TOTAL 0.8 mg/dL (0.0-1.0); BLOOD UREA NITROGEN 23 mg/dL (9-20); CALCIUM 9.2 mg/dL (8.4-10.2); CARBON DIOXIDE 18 mmol/L (22-30); CHLORIDE 110 mmol/L (98-107); CREATININE, serum 1.14 mg/dL (0.66-1.25); GLUCOSE 139 mg/dL (74-106); LIPASE 555 U/L (23-300); POTASSIUM 4.1 mmol/L (3.4-5.0); SODIUM 138 mmol/L (137-145); TOTAL PROTEIN 6.1 gm/dL (6.4-8.2)
[2017-05-12 02:30] LABS: ANISOCYTOSIS 2+; BAND 8 % (0-10); EOSINOPHIL 1 % (0-4); METAMYELOCYTE 1 % (0-0); NEUTROPHILS 85 % (42.0-75.2); PLATELET ESTIMATE NORMAL (NORMAL); TOTAL CELLS COUNTED 100
[2017-05-12 02:38] LABS: B-TYPE NATRIURETIC PEPTIDE 300 pg/mL (0-450); TROPONIN-I < 0.012 ng/mL (0.000-0.034)
[2017-05-12 05:11] LABS: PH 6 (5-8); SQUAMOUS EPITHELIAL 0-2 /hpf; URINE APPEARANCE Clear; URINE BACTERIA None Seen /hpf; URINE BILIRUBIN Negative (NEGATIVE); URINE BLOOD Negative (NEGATIVE); URINE COLOR Straw; URINE GLUCOSE 1+ (NEGATIVE); URINE KETONE Negative (NEGATIVE); URINE RBC 0-2 /hpf; URINE UROBILINOGEN Negative (NEGATIVE); URINE WBC 0-2 /hpf
[2017-05-12 07:21] LABS: B-TYPE NATRIURETIC PEPTIDE 314 pg/mL (0-450)
[2017-05-12] MEDS ORDERED: PROTONIX 40MG T40 MG PO (17:46)
== END 2017-05-12 18:19 | disposition home or self-care (01) ==
LOC: COL.ER 01:31 → MEDICAL 05:20
PROVIDERS: Emergency Medicine
DX: R07.89 Other chest pain (principal); K21.9 Gastro-esophageal reflux disease without esophagitis; C34.90 Malignant neoplasm of unspecified part of unspecified bronchus or lung; D64.81 Anemia due to antineoplastic chemotherapy; E03.9 Hypothyroidism, unspecified; E78.5 Hyperlipidemia, unspecified; C79.51 Secondary malignant neoplasm of bone; Z95.818 Presence of other cardiac implants and grafts; Z90.79 Acquired absence of other genital organ(s); Z85.46 Personal history of malignant neoplasm of prostate
CPT/HCPCS: G0378; J1170; J1200; J1940; J2270; J7030; P9040; Q9967